=== PATIENT | female | born 1960 | race Caucasian/White ===

== ENCOUNTER → 2017-02-04 | Outpatient (CLI) | payer BC ==
[2005-11-04 13:44] VITALS: TEMP 97.6
== END ==
LOC: MC.RAD 16:20
DX: Z12.31 Encounter for screening mammogram for malignant neoplasm of breast (principal)

== ENCOUNTER → 2020-02-15 | Outpatient (CLI) | payer BC ==
[2005-11-04 13:44] VITALS: TEMP 97.6
== END ==
LOC: MC.RAD 15:23
DX: Z12.31 Encounter for screening mammogram for malignant neoplasm of breast (principal)